=== PATIENT | female | born 1950 | race Caucasian/White ===

== ENCOUNTER 2019-09-16 03:43 | Emergency (ER) | payer MEDICARE ==
[~2019-09-16] VITALS: Ht 149.9 cm; Wt 50.7 kg
[2019-09-16] MEDS ORDERED: LIDOCAINE 1%-EPI 1:100K, 20ML ONE (03:59)
[2019-09-16] MEDS ORDERED: OXYMETAZOLINE NASAL SPRAY 0.05%,30ML ONE (03:59)
--- NOTE | 2019-09-16 04:13 | NUR ---
Patient presents to ER c/o epistaxis since 149. Patient states she does not take blood thinners. Patient was HTN in triage; denies HTN meds but has a hx. Patient has a nose clip on. She is in NAD. Respirations even and unlabored.
[2019-09-16] MEDS ORDERED: AMLODIPINE 5 MG TABLET ONE (04:24)
[2019-09-16] MEDS ORDERED: AMLODIPINE 5 MG TABLET PO ONE (04:30)
[2019-09-16 05:02] VITALS: BP 206/92
== END 2019-09-16 05:08 | disposition home or self-care (01) ==
LOC: ED 04:17
DX: R04.0 Epistaxis (principal); I10 Essential (primary) hypertension
CPT/HCPCS: 93005; 99283